=== PATIENT | female | born 1980 | race Caucasian/White ===

== ENCOUNTER 2019-09-03 19:25 | Emergency (ER) | payer SELFPAY ==
[2019-09-03] MEDS ORDERED: IBUPROFEN 600 MG TABLET PO ONE (19:39)
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
== END 2019-09-03 20:54 | disposition home or self-care (01) ==
LOC: ER 19:25
DX: S63.92XA Sprain of unspecified part of left wrist and hand, initial encounter (principal); M54.2 Cervicalgia; V43.51XA Car driver injured in collision with sport utility vehicle in traffic accident, initial encounter; Y92.410 Unspecified street and highway as the place of occurrence of the external cause; F17.210 Nicotine dependence, cigarettes, uncomplicated
CPT/HCPCS: 72050; 99284